=== PATIENT | male | born 1980 | race Caucasian/White ===

== ENCOUNTER 2019-12-02 15:46 | Emergency (ER) | payer OTHER ==
[2019-12-02] MEDS ORDERED: Tetracaine 0.5% OPHTH SOLN/PF 4 ML BOT ONE (15:58)
[2019-12-02] MEDS ORDERED: Fluorescein Opthalmic Strip ONE (15:58)
[2019-12-02] MEDS ORDERED: Erythromycin Base 0.5% Ophth Oint 3.5 gm Tube ONE (16:09)
[2019-12-02] MEDS ORDERED: Ibuprofen 200 MG TAB ONE (16:18)
== END 2019-12-02 16:23 | disposition home or self-care (01) ==
LOC: BURERS 15:46
DX: S05.01XA Injury of conjunctiva and corneal abrasion without foreign body, right eye, initial encounter (principal); W22.8XXA Striking against or struck by other objects, initial encounter
CPT/HCPCS: 99283